=== PATIENT | male | born 1980 | race Caucasian/White ===

== ENCOUNTER 2017-02-08 12:51 | Emergency (ER) | payer SELFPAY ==
[~2017-02-08] VITALS: Ht 175.3 cm; Wt 110.8 kg
[~2017-02-08 12:51] MED LIST: LISI-170 PO; PROM25SU35 PR
[2017-02-08] MEDS ORDERED: SODIUM CHLORIDE FLUSH 10ML SYR IVF ONE (14:00)
[2017-02-08] MEDS ORDERED: CEFTRIAXONE PMX 1GM/50ML 50 ML IVPB ONE (14:00)
[2017-02-08] MEDS ORDERED: ONDANSETRON 2MG/ML, 2ML IVPush ONE (14:00)
[2017-02-08] MEDS ORDERED: CEFTRIAXONE PMX 1GM/50ML 50 ML ONE (14:13)
[2017-02-08] MEDS ORDERED: ONDANSETRON 2MG/ML, 2ML ONE (14:13)
[2017-02-08] MEDS ORDERED: HYDROmorphone 1 MG/ML, 1ML ONE ×2 (14:13→14:55)
[2017-02-08] MEDS: HYDROmorphone 1 MG/ML, 1ML IVPush PRN ×2 (14:16→14:59)
[2017-02-08 14:19] LABS: HEMATOCRIT 47.7 % (39.2-51.8)
[2017-02-08 14:25] LABS: BLOOD UREA NITROGEN 13 mg/dL (7-18)
[2017-02-08 14:28] LABS: ASPARTATE AMINO TRANSFERASE 17 U/L (15-37)
[2017-02-08] MEDS ORDERED: LIDOCAINE 1%, 20ML ONE (14:30)
[2017-02-08] MEDS ORDERED: SODIUM CHLORIDE 0.9% IC SCH (15:00)
[2017-02-08] MEDS ORDERED: PHENYLEPHRINE IC SCH (15:00)
[2017-02-08 16:57] VITALS: BP 121/78
== END 2017-02-08 17:00 | disposition home or self-care (01) ==
LOC: EDSEX 12:51 → ED 16:29
DX: N48.30 Priapism, unspecified (principal); I10 Essential (primary) hypertension
CPT/HCPCS: 36415; 80053; 85025; 96365; 96375; 96376; 99284; J0696; J1170; J2405

== ENCOUNTER 2019-12-24 16:12 | Emergency (ER) | payer SELFPAY ==
[~2019-12-24] VITALS: Ht 175.3 cm; Wt 111.3 kg
--- NOTE | 2019-12-24 18:22 | NUR ---
ADOPTION SPECIALIST: PT AMBULATORY WITH STEADY GAIT TO ROOM AT THIS TIME. RANDOLPH
--- NOTE | 2019-12-24 18:40 | NUR ---
TASK RN: CONTACT WITH PT. 39 YR OLD MALE HERE WITH C/O "I'M HERE BECAUSE I HAVE PAIN IN MY THROAT, I FEEL VERY WEAK, I HAVE PAIN IN MY CHEST. MY MOM IN IS POSITIVE FOR COVID. MY SISTER HAS HAD CONTACT WITH HER AND IS NOW POSITIVE. I SAW MY SISTER ON FRIDAY." PT IN NO ACUTE DISTRESS. PLACED ON MONITORS.
--- NOTE | 2019-12-24 18:54 | NUR ---
REPORT TO SAJI Barber RN.
--- NOTE | 2019-12-24 18:55 | NUR ---
PT IDENTIFIES FEMALE AND PREFERS TO BE CALLED CHARANJIT.
[2019-12-24] MEDS ORDERED: ACETAMINOPHEN 500 MG TABLET ONE (19:17)
[2019-12-24 19:25] LABS: BASOPHILS # (AUTO) 0.03 x10^3/uL (0-0.1); BASOPHILS % (AUTO) 0 % (0-1); EOSINOPHILS # (AUTO) 0.03 x10^3/uL (0-0.4); EOSINOPHILS % (AUTO) 0 % (1-7); LYMPHOCYTES # (AUTO) 0.83 x10^3/uL (1-3.4); LYMPHOCYTES % (AUTO) 11 % (22-44); MD NO; MEAN CORPUSCULAR HEMOGLOBIN 30.6 pg (27.5-34.5); MEAN CORPUSCULAR HGB CONC 33.4 g/dL (33.2-36.2); MEAN CORPUSCULAR VOLUME 91.5 fL (81-97); MEAN PLATELET VOLUME 9.2 fL (7.4-10.4); MONOCYTES % (AUTO) 8 % (2-9); NEUTROPHILS # (AUTO) 6.23 x10^3/uL (1.8-6.8); NEUTROPHILS % (AUTO) 81 % (42-75); PLATELET COUNT 218 x10^3/uL (130-400); RED BLOOD COUNT 4.68 x10^6/uL (4.38-5.82); RED CELL DISTRIBUTION WIDTH 12.5 % (9.4-14.8)
[2019-12-24] MEDS ORDERED: ACETAMINOPHEN 500 MG TABLET PO ONE (19:30)
[2019-12-24] MEDS ORDERED: ACETAMINOPHEN 325 MG TABLET PO ONE (19:30)
[2019-12-24 19:34] LABS: ALANINE AMINOTRANSFERASE 64 U/L (12-78); ALBUMIN 3.6 g/dL (3.4-5.0); ANION GAP 11 mmol/L (5-15); CALCIUM 8.5 mg/dL (8.5-10.1); CHLORIDE 106 mmol/L (98-107)
[2019-12-24 19:36] LABS: ALKALINE PHOSPHATASE 162 U/L (45-117); BILIRUBIN,TOTAL 0.5 mg/dL (0.2-1.0); TOTAL PROTEIN 7.7 g/dL (6.4-8.2)
[2019-12-24 20:45] VITALS: BP 139/95
== END 2019-12-24 21:03 | disposition home or self-care (01) ==
LOC: ED 20:55
DX: U07.1 COVID-19 (principal); R50.9 Fever, unspecified; J02.9 Acute pharyngitis, unspecified; R05 Cough; R51 Headache; M79.10 Myalgia, unspecified site; R94.31 Abnormal electrocardiogram [ECG] [EKG]; I10 Essential (primary) hypertension; Z90.49 Acquired absence of other specified parts of digestive tract
CPT/HCPCS: 36415; 71045; 80053; 85025; 87635; 93005; 99285